=== PATIENT | female | born 1985 | race Caucasian/White ===

== ENCOUNTER 2017-11-10 11:56 | Observation (INO) | payer BC ==
[2017-11-10 15:29] LABS: PLATELET COUNT 244 10^3/uL (150-400)
--- NOTE | 2017-11-10 15:54 | SOAPPROG ---
SOAP Progress Note Assessment/Plan: Assessment: 31 y/o at 39.2 weeks ega with decreased movement sent to labor and delivery for NST complicated by: -increased BMI (36) -Rubella non-immune -insulin resistance ( 1 hour GTT 129) Reactive NST Gestational hypertension -Elevated BPs during this adm. 140s/80s - was 124/82 in office earlier today and has been normal range throughout Preeclampsia labs WNL Plan: 11/10/17 15:48 Subjective: Presents to labor and delivery from office with decreased movement today. Denies painful contractions, LOF, VB, increased swelling, headaches, epigastric pain or visual changes. FHTs 130s in office. VSS - BP 124/82 in office. No other concerns today. Objective: Laboratory Results 11/10/17 14:30 11/10/17 14:30 BPs elevated 140s/80s X2 upon admission Reactive NST - category 1 EFM [place] - quiet -denies painful contractions Reflexes +2 bilat Physical Exam - Physical Exam General Appearance: WD/WN, alert, no apparent distress EENT: PERRL/EOMI Neck: non-tender, supple Respiratory: lungs clear, normal breath sounds Cardiac/Chest: regular rate, rhythm Abdomen: non-tender (gravied non tender uterus) Pelvic Exam: deferred (SVE in office today /-3 posterior) Rectal: deferred Back: Normal inspection Skin: normal color, warm/dry Extremities: normal range of motion, pedal edema (mild pedal edema), swelling ( mild swelling in hands) Neuro/Psych: alert, normal mood/affect, oriented x 3
[2017-11-10] MEDS ORDERED: TERBUTALINE SULFATE 1 MG/ML VIAL IV PRN (17:03)
[2017-11-10] MEDS ORDERED: AMMONIA AROMATIC 1 EACH AMP IH PRN (17:03)
[2017-11-10] MEDS ORDERED: EPSOM SALT 454 GM TP PRN (17:03)
[2017-11-10] MEDS ORDERED: OLIVE OIL 118 ML BTL MISC PRN (17:03)
[2017-11-10] MEDS ORDERED: OXYTOCIN 20 UNIT in LR 1,000 ML IV PRN (17:03)
[2017-11-10] MEDS ORDERED: LR 1,000 ML IV PRN (17:03)
[2017-11-10] MEDS ORDERED: IBUPROFEN 600 MG TAB PO PRN (17:03)
[2017-11-10] MEDS ORDERED: MISOPROSTOL 200 MCG TAB PO PRN (17:03)
[2017-11-10] MEDS ORDERED: ZOLPIDEM TARTRATE 5 MG TAB PO PRN (17:08)
--- NOTE | 2017-11-10 17:45 | PDGENHP ---
History and Physical History and Physical: HPI: Patient is a 32 yo G 1 P0 at 39.3 weeks EGA who presented to L&D with complaints of decreased movement when seen for MADHU visit in office earlier today. NST was reactive, but BPs on admission were 140s/80s. BP was 124/80 in office today and has been in normal range during visits. Preeclampsia labs were drawn at that time- CMP, CBC, uric acid and urine protein /creat ratio were not suggestive of pre-eclampsia although repeat BP at 4 hours was 161/92. BP cuff was found to be an inappropriate size at that time and when appropriate sized cuff was used, BPs were in the 140s/80s-90 range. Patient denies LOF, VB, headache, visual changes, increased edema, or epigastric pain. Feeling more movement at this time. EDC: 11/15/2017 which is based on Ultrasound at 8 weeks - unknown LMP Her is complicated by: -high BMI (36 pre-) -insulin resistance - ( 1 hour GTT 129) Growth US at 33 weeks showed baby at 49 % -Rubella non- immune -GBS positive with PCN allergy Review of Systems: Constitutional: Denies any fever, chills, or fatigue HEENT: denies any visual changes, difficulty swallowing, hearing loss Cardiovascular: Denies any chest pain, palpitations, leg swelling Respiratory: denies any cough, wheezing, or shortness of breathe GI: Denies any nausea, vomiting, diarrhea, constipation : denies any dysuria, urgency, frequency, vaginal bleeding Musculoskeletal: denies any muscle or bone pain Skin: denies any rashes Neuro: denies any headache, seizures, lightheadedness, dizziness, or loss of consciousness Psychiatric: denies any depression, anxiety, or SI/HI thoughts HISTORY: Past medical history: insulin resistance, rubella non-immune Pertinent Past surgical history: none Medications: PNV Allergies (list reaction): PCN- rash LABS: Rh: A pos ABS: Neg Rubella: non-Immune HbsAg: NR HIV: NR VDRL: NR 1hr: 129 GC: Neg Chlamydia: Neg Pap: Normal 04/02 GBS:pos BMI: (prepreg) 36 PHYSICAL EXAM: Constitutional: WN, A&Ox3 HEENT: normocephalic atraumatic, supple Heart: RRR, no murmur Chest: CTA-B Abdomen: Soft, nontender, gravid SVE: 50/-3 Extremities: mild edema, negative adeline's sign Neuro: grossly normal Psych: normal affect assessment: Reassuring FHTs, baseline 130s +accels, no decels, moderate variability Contractions: toco irregular mild Assessment: 1) 31 yo G 1 P 0 with IUP@39.2 weeks EGA 2) Gestational hypertension 3) Preeclampsia labs WNL 3) GBS pos with PCN allergy 4) Reactive NST - Cat 1 FHR tracing 5) Rubella non- immune Plan: 1) Consulted with Dr. Shanks 2) Will send home now with strict preeclampsia precautions/ kick counts 3) Will return for IOL tomorrow at 5 pm - plan to place fitch bulb at that time 4) Patient verbalizes understanding and is comfortable with POC
[2017-11-10] MEDS ORDERED: CLINDAMYCIN 900 MG/DEXTROSE 50 ML IV SCH (22:00)
== END 2017-11-10 20:00 | disposition home or self-care (01) ==
LOC: FLD 11:56
PROVIDERS: ADMIT Advanced Practice Midwife; ATTEND Advanced Practice Midwife
DX: O13.3 Gestational [pregnancy-induced] hypertension without significant proteinuria, third trimester (principal); O36.8130 Decreased fetal movements, third trimester, not applicable or unspecified; O99.213 Obesity complicating pregnancy, third trimester; E66.9 Obesity, unspecified; Z68.36 Body mass index [BMI] 36.0-36.9, adult; O99.820 Streptococcus B carrier state complicating pregnancy; Z78.9 Other specified health status; Z88.0 Allergy status to penicillin; Z3A.39 39 weeks gestation of pregnancy
CPT/HCPCS: 59025; G0378

== ENCOUNTER 2017-11-11 17:00 | Inpatient (IN) | payer BC ==
[2017-11-11] MEDS ORDERED: EPSOM SALT 454 GM TP PRN (20:10)
[2017-11-11] MEDS ORDERED: LR 1,000 ML IV PRN (20:10)
[2017-11-11] MEDS ORDERED: TERBUTALINE SULFATE 1 MG/ML VIAL IV PRN (20:10)
[2017-11-11] MEDS ORDERED: MISOPROSTOL 200 MCG TAB PR PRN (20:10)
[2017-11-11] MEDS ORDERED: OLIVE OIL 118 ML BTL MISC PRN (20:10)
[2017-11-11] MEDS ORDERED: OXYTOCIN 20 UNIT in LR 1,000 ML IV PRN (20:10)
[2017-11-11 20:35] LABS: PLATELET COUNT 248 10^3/uL (150-400)
--- NOTE | 2017-11-11 21:02 | PDGENHP ---
History and Physical - Chief Complaint Induction of Labor for Gestational Hypertension - History of Present Illness 32 year old G1 at 39w3d by an 8 week ultrasound, presents for induction of labor secondary to gestational hypertension. She was seen in the office and evaluated in L&D yesterday, with some labile blood pressures, and it was decided by Elda Christian CNM, and the patient, to proceed with induction of labor starting tonight. Her PIH labs were normal yesterday. Today - she has a mild headache, which she relates to stress and dehydration today. Otherwise, no epigastric or RUQ pain. No visual changes. Good movement, no loss of fluid, no vaginal bleeding. has been complicated by recent hypertension, obesity with over a 50lb weight gain in , with a prepregnancy BMI of 36. labs: HBSAG neg, HIV neg, Rubella non Immune, RPR nonreactive, A pos, Ab scr neg, 1 hr GTT 129, Standard panel neg, HgbA1c 5.7, Gonorrhea neg, Chlamydia neg, Innatal neg, H/H at 28 wk = 12.1/35.8 History Information - Allergies/Home Medication List Allergies/Adverse Reactions: Penicillins Allergy (Verified 11/11/17 21:49) Rash Home Medications: Vit27&Calcium/Iron/FA [] 1 tab PO DAILY 11/10/17 [Last Taken ] I have personally reviewed and updated: family history, medical history, social history, surgical history Past Medical History: Insulin resistance. R wrist fracture 02/2016 - no surgery. Obesity - prepreg BMI 36 - Surgical History Additional surgical history: none - Family History Positive for: diabetes type II (father - DM2, sister bipolar, MGM - CVA, mother - lupus with kidney failure) - Social History Smoking Status: Never smoked Alcohol Use: None Drug Use: None Additional social history: Review of Systems Review of Systems: ROS: 10pt was reviewed & negative except for what was stated in HPI & below Physical Exam Physical Exam: US - confirmed cephalic presentation SVE - 1cm/ long / high 37.1 87 143/93 BP repeats: 156/102, 159/99, 151/92,166/98 ([id number]) 2100:134/66, 2115:139/71 Constitutional: no apparent distress Eyes: PERRL Ears, Nose, Mouth, Throat: moist mucous membranes Cardiovascular: regular rate and rhythym Respiratory: no respiratory distress, no rales or rhonchi, clear to auscultation Gastrointestinal: normoactive bowel sounds Skin: warm, normal color Musculoskeletal: full muscle strength Neurologic: AAOx3 Psychiatric: interacting appropriately (fundus firm and nontender) Lab Data & Imaging Review 11/11/17 19:15 11/11/17 19:15 WBC 11.31 10^3/uL (3.80-9.50) H 11/11/17 19:15 RBC 4.11 10^6/uL (4.18-5.33) L 11/11/17 19:15 Hgb 11.9 g/dL (12.6-16.3) L 11/11/17 19:15 Hct 35.2 % (38.0-47.0) L 11/11/17 19:15 MCV 85.6 fL (81.5-99.8) 11/11/17 19:15 MCH 29.0 pg (27.9-34.1) 11/11/17 19:15 MCHC 33.8 g/dL (32.4-36.7) 11/11/17 19:15 RDW 14.8 % (11.5-15.2) 11/11/17 19:15 Plt Count 248 10^3/uL (150-400) 11/11/17 19:15 MPV 11.6 fL (8.7-11.7) 11/11/17 19:15 Neut % (Auto) 78.0 % (39.3-74.2) H 11/11/17 19:15 Lymph % (Auto) 16.1 % (15.0-45.0) 11/11/17 19:15 [place] % (Auto) 4.2 % (4.5-13.0) L 11/11/17 19:15 Eos % (Auto) 1.1 % (0.6-7.6) 11/11/17 19:15 Baso % (Auto) 0.2 % (0.3-1.7) L 11/11/17 19:15 Nucleat RBC Rel Count 0.0 % (0.0-0.2) 11/11/17 19:15 Absolute Neuts (auto) 8.83 10^3/uL (1.70-6.50) H 11/11/17 19:15 Absolute Lymphs (auto) 1.82 10^3/uL (1.00-3.00) 11/11/17 19:15 Absolute Monos (auto) 0.47 10^3/uL (0.30-0.80) 11/11/17 19:15 Absolute Eos (auto) 0.12 10^3/uL (0.03-0.40) 11/11/17 19:15 Absolute Basos (auto) 0.02 10^3/uL (0.02-0.10) 11/11/17 19:15 Absolute Nucleated RBC 0.00 10^3/uL (0-0.01) 11/11/17 19:15 Immature Gran % 0.4 % (0.0-1.1) 11/11/17 19:15 Immature Gran # 0.05 10^3/uL (0.00-0.10) 11/11/17 19:15 BUN 10 mg/dL (7-23) 11/11/17 19:15 Creatinine 0.5 mg/dL (0.6-1.0) L 11/11/17 19:15 Estimated GFR > 60 11/11/17 19:15 Uric Acid 2.9 mg/dL (2.5-6.8) 11/11/17 19:15 Total Bilirubin 0.5 mg/dL (0.1-1.4) 11/11/17 19:15 Conjugated Bilirubin 0.2 mg/dL (0.0-0.5) 11/11/17 19:15 Unconjugated Bilirubin 0.3 mg/dL (0.0-1.1) 11/11/17 19:15 AST 21 IU/L (14-46) 11/11/17 19:15 ALT 31 IU/L (9-52) 11/11/17 19:15 Lactate Dehydrogenase 428 IU/L (313-618) 11/11/17 19:15 UA with 1+ protein Urine prot/Creat = 0.049 Assessment & Plan Assessment: 32 yo G1 at 39w3d with gestational HTN - here for induction of labor. Normal PIH labs. GBS positive - will start Ancef when in labor / after cervical ripening. Rubella non-Immune - will need pp vaccination. Plan: Cervical ripening tonight - Matos balloon placed. Procedure - attempted digital insertion - unable to complete due to body habitus and patient discomfort. Sterile speculum placed, and was able to feed catheter through cervix with ring forceps, and balloon was filled with 30ml sterile saline. Patient tolerated procedure well.
[2017-11-11] MEDS ORDERED: diphenhydrAMINE 25 MG CAP PO PRN (21:32)
[2017-11-11] MEDS ORDERED: CALCIUM CARBONATE 500 MG CHEWABLE TAB PO PRN (21:33)
[2017-11-11] MEDS: ACETAMINOPHEN 325 MG TAB PO PRN (21:52)
[2017-11-11] MEDS ORDERED: ceFAZolin 2 GM/SWFI 2 GM/20 ML SYR IVP ONE (22:30)
[2017-11-12] MEDS: ACETAMINOPHEN 325 MG TAB PO PRN (05:38)
[2017-11-12] MEDS ORDERED: OLIVE OIL 118 ML BTL ONE (06:08)
[2017-11-12] MEDS ORDERED: AMMONIA AROMATIC 1 EACH AMP IH ONE (06:08)
[2017-11-12] MEDS ORDERED: TERBUTALINE SULFATE 1 MG/ML VIAL ONE (06:08)
[2017-11-12] MEDS ORDERED: LIDOCAINE 1% 300 MG/30 ML SDV ONE (06:08)
[2017-11-12] MEDS ORDERED: OXYTOCIN 10 UNIT/ML VIAL ONE (06:09)
[2017-11-12] MEDS ORDERED: MISOPROSTOL 200 MCG TAB ONE (06:09)
[2017-11-12] MEDS ORDERED: MISOPROSTOL 50 MCG CAP PO PRN (08:12)
--- NOTE | 2017-11-12 08:54 | OBPROG ---
Labor Progress Note Assessment/Plan: Assessment: [id number] with IUP@39-4wks GHTN BMI 36 excessive wt gain in (>50#) GBS+ Cat 1 FHR Tracing Plan: fitch balloon out cytotec 50mcg PO at this time, q 4 hr PRN cont FHR monitoring reassess 4hr/PRN Dr Shanks agrees with POC 11/12/17 08:51 Subjective/Intrapartum Course: 11/12/17 08:53 Pt doing well. She denies any severe pain, but states she is uncomfortable with balloon in place. She denies any contractions, LOF, Vb. She reports +FM. She denies any headaches, visual changes, epigastric pain. FOB at BS and supportive. Objective: 11/11/17 19:15 11/11/17 19:15 Patient ABO/Rh A POSITIVE 11/11/17 19:15 Uric Acid 2.9 mg/dL (2.5-6.8) 11/11/17 19:15 Total Bilirubin 0.5 mg/dL (0.1-1.4) 11/11/17 19:15 Conjugated Bilirubin 0.2 mg/dL (0.0-0.5) 11/11/17 19:15 Unconjugated Bilirubin 0.3 mg/dL (0.0-1.1) 11/11/17 19:15 AST 21 IU/L (14-46) 11/11/17 19:15 ALT 31 IU/L (9-52) 11/11/17 19:15 Lactate Dehydrogenase 428 IU/L (313-618) 11/11/17 19:15 - SVE Dilation (cm): 1 Effacement (%): Less than 50 Station: -3 Membranes: Intact - Contraction Pattern Assessment Current Contraction Pattern: Irregular - FHR Assessment Bobo FHR (bpm): 135 FHR Pattern Variability: Moderate FHR Category: 1 - Physical Exam General Appearance: WD/WN, alert Abdomen: non-tender, soft Extremities: pedal edema (trace) DTR- Lower Extremities: Knee (R): 1+, Knee (L): 1+ Skin: normal color, warm/dry Neuro/Psych: no motor/sensory deficits, alert, normal mood/affect, oriented x 3 Oxytocin Orders Assessment - Pre-Induction/Augmentation Assessment Gestational Age: 39 week(s) and 3 day(s) ICD10 Worksheet Patient Problems: Problems Problem Status Onset BMI 36.0-36.9,adult Acute Excessive weight gain affecting Acute Gestational hypertension Acute - ICD10 Problem Qualifiers (1) Gestational hypertension (2) BMI 36.0-36.9,adult (3) Excessive weight gain affecting
--- NOTE | 2017-11-12 09:58 | PDMN ---
Medical Necessity Medical necessity: Patient meets inpatient criteria per physician note (IOL, gestational hypertension) and MCG likely [id number] Vaginal Delivery.
[2017-11-12] MEDS ORDERED: ceFAZolin 2 GM/SWFI 2 GM/20 ML SYR IVP ONE (11:15)
--- NOTE | 2017-11-12 13:39 | OBPROG ---
Labor Progress Note Assessment/Plan: Assessment: [id number] with IUP@39-4wks GHTN BMI 36 excessive wt gain in (>50#) GBS+ Cat 1 FHR Tracing Plan: cytotec 100mcg PO ordered cont FHR monitoring reassess 4hr/PRN 11/12/17 08:51 11/12/17 13:37 11/12/17 13:38 Subjective/Intrapartum Course: 11/12/17 08:53 Pt doing well. She denies any severe pain, but states she is uncomfortable with balloon in place. She denies any contractions, LOF, Vb. She reports +FM. She denies any headaches, visual changes, epigastric pain. FOB at BS and supportive. Objective: 11/11/17 19:15 11/11/17 19:15 Patient ABO/Rh A POSITIVE 11/11/17 19:15 Uric Acid 2.9 mg/dL (2.5-6.8) 11/11/17 19:15 Total Bilirubin 0.5 mg/dL (0.1-1.4) 11/11/17 19:15 Conjugated Bilirubin 0.2 mg/dL (0.0-0.5) 11/11/17 19:15 Unconjugated Bilirubin 0.3 mg/dL (0.0-1.1) 11/11/17 19:15 AST 21 IU/L (14-46) 11/11/17 19:15 ALT 31 IU/L (9-52) 11/11/17 19:15 Lactate Dehydrogenase 428 IU/L (313-618) 11/11/17 19:15 - SVE Membranes: Intact - Contraction Pattern Assessment Current Contraction Pattern: Irregular - FHR Assessment Bobo FHR (bpm): 130 FHR Pattern Variability: Moderate FHR Category: 1 Oxytocin Orders Assessment - Pre-Induction/Augmentation Assessment Gestational Age: 39 week(s) and 3 day(s) ICD10 Worksheet Patient Problems: Problems Problem Status Onset BMI 36.0-36.9,adult Acute Excessive weight gain affecting Acute Gestational hypertension Acute - ICD10 Problem Qualifiers (1) Gestational hypertension (2) BMI 36.0-36.9,adult (3) Excessive weight gain affecting
[2017-11-12] MEDS: MISOPROSTOL 100 MCG TAB PO SCH ×2 (13:52→19:08)
[2017-11-12] MEDS ORDERED: CLINDAMYCIN 900 MG/DEXTROSE 50 ML IV SCH (14:00)
[2017-11-12] MEDS ORDERED: LR 500 ML IV PRN (18:23)
--- NOTE | 2017-11-12 18:27 | OBPROG ---
Labor Progress Note Assessment/Plan: Assessment: [id number] with IUP@39-4wks GHTN BMI 36 excessive wt gain in (>50#) GBS+ Cat 1 FHR Tracing Plan: plan to start pitocin cont FHR monitoring reassess 2-4hr/PRN 11/12/17 08:51 11/12/17 13:37 11/12/17 13:38 11/12/17 18:25 Subjective/Intrapartum Course: 11/12/17 08:53 Pt doing well. She denies any severe pain, but states she is uncomfortable with balloon in place. She denies any contractions, LOF, Vb. She reports +FM. She denies any headaches, visual changes, epigastric pain. FOB at BS and supportive. 11/12/17 18:25 Pt doing well, reports cramping and mild contractions. She states she had ?LOF at 1730, but unsure. She declines need for pain relief. Objective: 11/11/17 19:15 11/11/17 19:15 Patient ABO/Rh A POSITIVE 11/11/17 19:15 Uric Acid 2.9 mg/dL (2.5-6.8) 11/11/17 19:15 Total Bilirubin 0.5 mg/dL (0.1-1.4) 11/11/17 19:15 Conjugated Bilirubin 0.2 mg/dL (0.0-0.5) 11/11/17 19:15 Unconjugated Bilirubin 0.3 mg/dL (0.0-1.1) 11/11/17 19:15 AST 21 IU/L (14-46) 11/11/17 19:15 ALT 31 IU/L (9-52) 11/11/17 19:15 Lactate Dehydrogenase 428 IU/L (313-618) 11/11/17 19:15 - SVE Dilation (cm): 2 Effacement (%): 50 Station: -3 Membranes: SROM Amniotic Fluid Color: Clear - Contraction Pattern Assessment Current Contraction Pattern: Irregular - FHR Assessment Bobo FHR (bpm): 130 FHR Pattern Variability: Moderate FHR Category: 1 Oxytocin Orders Assessment - Pre-Induction/Augmentation Assessment Presentation: Vertex Gestational Age: 39 week(s) and 3 day(s) Membrane Status: Ruptured Current Sterile Vaginal Exam (SVE): /-3 Current Contraction Pattern: Irregular - Induction/Augmentation Consent Risks/Benefits of Procedure Reviewed/Pt Agrees to Proceed: Yes ICD10 Worksheet Patient Problems: Problems Problem Status Onset BMI 36.0-36.9,adult Acute Excessive weight gain affecting Acute Gestational hypertension Acute - ICD10 Problem Qualifiers (1) Gestational hypertension (2) BMI 36.0-36.9,adult (3) Excessive weight gain affecting
[2017-11-12] MEDS ORDERED: OXYTOCIN 30 UNIT in NS 500 ML IV SCH (18:30)
[2017-11-12] MEDS: CLINDAMYCIN 900 MG/DEXTROSE 50 ML IV SCH (19:24)
--- NOTE | 2017-11-12 23:07 | OBPROG ---
Labor Progress Note Assessment/Plan: Assessment: [id number] with IUP@39-4wks GHTN BMI 36 excessive wt gain in (>50#) GBS+ Cat 1 FHR Tracing Plan: cont pitocin pain management PRN cont IV abx (clindamycin) cont FHR monitoring reassess 2-4hr/PRN Subjective/Intrapartum Course: 11/12/17 08:53 Pt doing well. She denies any severe pain, but states she is uncomfortable with balloon in place. She denies any contractions, LOF, Vb. She reports +FM. She denies any headaches, visual changes, epigastric pain. FOB at BS and supportive. 11/12/17 18:25 Pt doing well, reports cramping and mild contractions. She states she had ?LOF at 1730, but unsure. She declines need for pain relief. 11/13/17 23:25 Pt reports pain with contractions. She is considering pain medication/LUIS. She is going to try hydrotherapy at this time. She is breathing through contractions. Objective: 11/11/17 19:15 11/11/17 19:15 Patient ABO/Rh A POSITIVE 11/11/17 19:15 Uric Acid 2.9 mg/dL (2.5-6.8) 11/11/17 19:15 Total Bilirubin 0.5 mg/dL (0.1-1.4) 11/11/17 19:15 Conjugated Bilirubin 0.2 mg/dL (0.0-0.5) 11/11/17 19:15 Unconjugated Bilirubin 0.3 mg/dL (0.0-1.1) 11/11/17 19:15 AST 21 IU/L (14-46) 11/11/17 19:15 ALT 31 IU/L (9-52) 11/11/17 19:15 Lactate Dehydrogenase 428 IU/L (313-618) 11/11/17 19:15 - SVE Dilation (cm): 3 Effacement (%): 75 Station: -2 Membranes: SROM Amniotic Fluid Color: Clear - Contraction Pattern Assessment Current Contraction Pattern: Irregular Oxytocin Orders Assessment - Pre-Induction/Augmentation Assessment Presentation: Vertex Gestational Age: 39 week(s) and 3 day(s) ICD10 Worksheet Patient Problems: Problems Problem Status Onset BMI 36.0-36.9,adult Acute Excessive weight gain affecting Acute Gestational hypertension Acute - ICD10 Problem Qualifiers (1) Gestational hypertension (2) BMI 36.0-36.9,adult (3) Excessive weight gain affecting
[2017-11-13] MEDS ORDERED: fentaNYL 100 MCG/2 ML INJ ONE (00:51)
[2017-11-13] MEDS ORDERED: PHENYLEPHRINE HCL 100 MCG/ML SYR ONE (00:51)
[2017-11-13] MEDS ORDERED: METOCLOPRAMIDE 10 MG/2 ML VIAL IVP PRN (00:54)
[2017-11-13] MEDS ORDERED: ONDANSETRON 4 MG/2 ML VIAL IVP PRN (00:54)
[2017-11-13] MEDS ORDERED: PHENYLEPHRINE HCL 100 MCG/ML SYR IVP PRN (00:54)
[2017-11-13] MEDS ORDERED: NALOXONE HCL 0.4 MG/ML INJ IVP PRN (00:54)
--- NOTE | 2017-11-13 00:56 | PREANESOB ---
Obstetric Pre-Anesthesia Info - General Info : 1 Para: 0 MARJORIE: 11/15/17 Gestational Age: 39 week(s) and 3 day(s) - Labor Status Cervical Dilation per last OB SVE: 3 Station per last OB SVE: -2 Amniotic Fluid Color: Clear Magnesium Sulfate in Use: No Indications for Labor Analgesia: Pain Control Labor Epidural: Yes Anesthesia Allergies/Adverse Reactions: Allergy/AdvReac Type Severity Reaction Status Date / Time cefazolin [From [facility]] Allergy itching in Verified 11/12/17 14:19 throat and hives Penicillins Allergy Rash Verified 11/12/17 14:21 Home Medications: Medication Instructions Recorded Vit27&Calcium/Iron/FA 1 tab PO DAILY 11/10/17 [] Visit Medications: Generic Name Dose Route Start Last Admin Trade Name Freq PRN Reason Stop Dose Admin Acetaminophen 650 mg 11/11/17 21:31 11/12/17 05:38 Tylenol PO 05/10/18 21:30 650 mg Q4HRS PRN Administration Pain, Mild/Fever, Can Take PO Calcium Carbonate 500 mg 11/11/17 21:33 Tums PO 05/10/18 21:32 TID PRN Indigestion Diphenhydramine HCl 25 mg 11/11/17 21:32 11/11/17 23:24 Benadryl PO 05/10/18 21:31 25 mg HS PRN Administration Sleep/Insomnia Oxytocin 20 unit/ Lactated 1,002 mls @ 150 mls/hr 11/11/17 20:10 Ringer's IV PRN PRN Post- bleeding Clindamycin Phosphate/Dextrose 50 mls @ 100 mls/hr 11/12/17 19:00 11/12/17 19 :24 Cleocin 900 Mg (Premix) IV 12/12/17 18:59 50 mls Q8H LIAM Administration Protocol Lactated Ringer's 500 mls @ 500 mls/hr 11/12/17 18:23 Lr IV 11/13/17 18:23 PRN PRN Maternal Hypotension Oxytocin 30 unit/ Sodium 503 mls @ 0 mls/hr 11/12/17 18:30 11/12/17 20:12 Chloride IV 05/11/18 18:29 503 mls CONT LIAM Administration Protocol Per Protocol Ibuprofen 600 mg 11/11/17 20:10 Motrin PO 05/10/18 20:09 Q6HRS PRN post , inflammation Magnesium Sulfate 454 gm 11/11/17 20:10 Epsom Salt TP 05/10/18 20:09 Q1H PRN perineal discomfort Misoprostol 800 - 1,000 mcg 11/11/17 20:10 Cytotec MO ONCE PRN Vaginal Atony/Bleeding [place] Oil 118 ml 11/11/17 20:10 Sweet Oil MISC 05/10/18 20:09 ONCE PRN perineal massage Terbutaline Sulfate 0.25 mg 11/11/17 20:10 Brethine IV 05/10/18 20:09 ONCE PRN Tachysystole Discontinued Medications Generic Name Dose Route Start Last Admin Trade Name Freq PRN Reason Stop Dose Admin Ammonia (Aromatic Spirit) Confirm 11/12/17 06:08 Ammonia Aromatic Administered 11/12/17 06:09 Dose 1 each IH .STK-MED ONE Diphenhydramine HCl Confirm 11/12/17 12:11 Benadryl Injection Administered 11/12/17 12:12 Dose 50 mg .ROUTE .STK-MED ONE Diphenhydramine HCl 50 mg 11/12/17 12:30 11/12/17 12:05 Benadryl Injection IVP 11/12/17 12:31 50 mg ONCE ONE Administration Ephedrine Sulfate Confirm 11/13/17 00:51 Ephedrine Sulfate Administered 11/13/17 00:52 Dose 50 mg .ROUTE .STK-MED ONE Fentanyl Confirm 11/13/17 00:51 Sublimaze Administered 11/13/17 00:52 Dose 100 mcg .ROUTE .STK-MED ONE Lactated Ringer's 1,000 mls @ 0 mls/hr 11/11/17 20:10 11/12/17 09:02 Lr IV 11/12/17 20:09 1,000 mls PRN PRN Administration SEE PROTOCOL CONDITIONS Protocol Per Protocol Cefazolin Sodium 2 gm in 20 mls @ 40 mls/hr 11/11/17 22:30 11/12/17 01:08 Cefazolin Syringe IVP 11/11/17 22:59 Not Given ONCALL ONE Protocol Cefazolin Sodium/Dextrose 50 mls @ 200 mls/hr 11/12/17 06:00 Ancef 1 Gm (Premix) IV 12/12/17 05:59 Q8HRS LIAM Protocol Cefazolin Sodium 2 gm in 20 mls @ 40 mls/hr 11/12/17 11:15 11/12/17 11:25 Cefazolin Syringe IVP 11/12/17 11:44 20 mls ONCALL ONE Administration Protocol Cefazolin Sodium/Dextrose 50 mls @ 200 mls/hr 11/12/17 17:00 Ancef 1 Gm (Premix) IV 12/12/17 16:59 Q8H [facility] Protocol Clindamycin Phosphate/Dextrose 50 mls @ 100 mls/hr 11/12/17 14:00 11/12/17 16 :13 Cleocin 900 Mg (Premix) IV 12/12/17 13:59 Not Given Q8HRS [facility] Protocol Lidocaine HCl Confirm 11/12/17 06:08 Lidocaine Hcl 1% Administered 11/12/17 06:09 Dose 300 mg .ROUTE .STK-MED ONE Misoprostol Confirm 11/12/17 06:09 Cytotec Administered 11/12/17 06:10 Dose 1,000 mcg .ROUTE .STK-MED ONE Misoprostol 50 mcg 11/12/17 08:12 11/12/17 09:03 Cytotec PO 05/11/18 08:11 50 mcg Q4H PRN Administration induction of labor Misoprostol 100 mcg 11/12/17 13:45 11/12/17 19:08 Cytotec PO 05/11/18 13:44 Not Given Q4H [facility] [place] Oil Confirm 11/12/17 06:08 Sweet Oil Administered 11/12/17 06:09 Dose 118 ml .ROUTE .STK-MED ONE Oxytocin Confirm 11/12/17 06:09 Pitocin Administered 11/12/17 06:10 Dose 30 unit .ROUTE .STK-MED ONE Phenylephrine HCl Confirm 11/13/17 00:51 Neosynephrine Administered 11/13/17 00:52 Dose 1,000 mcg .ROUTE .STK-MED ONE Terbutaline Sulfate Confirm 11/12/17 06:08 Brethine Administered 11/12/17 06:09 Dose 1 mg .ROUTE .STK-MED ONE - Anesthesia History Response to Local Anesthetics: Normal Anesthesia & Operative History: No Prior Problems Family Anesthesia History: Negative - Social History Substance Use/Abuse: Denies - Vital Signs Height/Weight (Nursing): Height 165.1 cm Weight 115.666 kg - Focused Exam Neck exam: FROM Mallampati Score: Class 2 Mouth exam: normal dental/mouth exam Pulmonary: no respiratory distress Labs: 11/11/17 19:15 11/11/17 19:15 Patient ABO/Rh A POSITIVE 11/11/17 19:15 Uric Acid 2.9 mg/dL (2.5-6.8) 11/11/17 19:15 Total Bilirubin 0.5 mg/dL (0.1-1.4) 11/11/17 19:15 Conjugated Bilirubin 0.2 mg/dL (0.0-0.5) 11/11/17 19:15 Unconjugated Bilirubin 0.3 mg/dL (0.0-1.1) 11/11/17 19:15 AST 21 IU/L (14-46) 11/11/17 19:15 ALT 31 IU/L (9-52) 11/11/17 19:15 Lactate Dehydrogenase 428 IU/L (313-618) 11/11/17 19:15 - Plan Consent Signed and on Chart: Yes Patient/Guardian Understands and Agrees to Plan: Yes
[2017-11-13] MEDS ORDERED: fentaNYL 200 MCG, BUPIVACAINE 0.5% 20 ML in NS 100 ML EP SCH (01:00)
[2017-11-13] MEDS ORDERED: LR 500 ML IV SCH (01:00)
[2017-11-13] MEDS ORDERED: fentaNYL 2MCG/ML/BUP 0.1% RTU 100 ML EP SCH (01:00)
--- NOTE | 2017-11-13 02:25 | OBPROG ---
Labor Progress Note Assessment/Plan: Assessment: [id number] with IUP@39-4wks GHTN BMI 36 excessive wt gain in (>50#) GBS+ Cat 2 FHR Tracing Plan: cont pitocin pain management PRN cont IV abx (clindamycin) reassess 2-4hr/PRN 11/13/17 02:21 11/13/17 02:25 Subjective/Intrapartum Course: 11/12/17 08:53 Pt doing well. She denies any severe pain, but states she is uncomfortable with balloon in place. She denies any contractions, LOF, Vb. She reports +FM. She denies any headaches, visual changes, epigastric pain. FOB at BS and supportive. 11/12/17 18:25 Pt doing well, reports cramping and mild contractions. She states she had ?LOF at 1730, but unsure. She declines need for pain relief. 11/13/17 23:25 Pt reports pain with contractions. She is considering pain medication/LIUS. She is going to try hydrotherapy at this time. She is breathing through contractions. 11/13/17 02:23 Pt comfortable with LUIS at this time. She does report mild pressure. Discussed recommendation for IUPC and FSE. Unable to adequately monitor contractions and FHR. Pt agrees to have IUPC and FSE placed at this time. Objective: 11/11/17 19:15 11/11/17 19:15 Patient ABO/Rh A POSITIVE 11/11/17 19:15 Uric Acid 2.9 mg/dL (2.5-6.8) 11/11/17 19:15 Total Bilirubin 0.5 mg/dL (0.1-1.4) 11/11/17 19:15 Conjugated Bilirubin 0.2 mg/dL (0.0-0.5) 11/11/17 19:15 Unconjugated Bilirubin 0.3 mg/dL (0.0-1.1) 11/11/17 19:15 AST 21 IU/L (14-46) 11/11/17 19:15 ALT 31 IU/L (9-52) 11/11/17 19:15 Lactate Dehydrogenase 428 IU/L (313-618) 11/11/17 19:15 - SVE Dilation (cm): 6 Effacement (%): 80 Station: -2 Membranes: SROM Amniotic Fluid Color: Clear - Contraction Pattern Assessment Current Contraction Pattern: Irregular - FHR Assessment Bobo FHR (bpm): 130 (difficult to monitor 2/2 habitus) FHR Pattern Variability: Moderate FHR Category: 2 - Procedures Non-surgical Procedures: FSE, IUPC Oxytocin Orders Assessment - Pre-Induction/Augmentation Assessment Presentation: Vertex Gestational Age: 39 week(s) and 3 day(s) ICD10 Worksheet Patient Problems: Problems Problem Status Onset BMI 36.0-36.9,adult Acute Excessive weight gain affecting Acute Gestational hypertension Acute - ICD10 Problem Qualifiers (1) Gestational hypertension (2) BMI 36.0-36.9,adult (3) Excessive weight gain affecting
[2017-11-13] MEDS ORDERED: HYDROCODONE/APAP 5/325 TAB PO PRN (04:29)
[2017-11-13] MEDS ORDERED: SIMETHICONE 80 MG TAB CHEW PO PRN (04:29)
[2017-11-13] MEDS ORDERED: HYDROCORTISONE 0.5% CREAM TP PRN (04:29)
[2017-11-13] MEDS ORDERED: ACETAMINOPHEN 325 MG TAB PO PRN (04:29)
[2017-11-13] MEDS: IBUPROFEN 600 MG TAB PO PRN ×4 (04:38→23:56)
[2017-11-13] MEDS: CLINDAMYCIN 900 MG/DEXTROSE 50 ML IV SCH ×2 (05:46→13:16)
--- NOTE | 2017-11-13 11:29 | POSTANESTH ---
Post Anesthetic Evaluation Cardiovascular Status: Normal, Stable Respiratory Status: Normal, Stable Level of Consciousness/Mental Status: Can Participate in Eval Pain Control: Adequate, Prn Tx Ordered Nausea/Vomiting Control: Adequate, Prn Tx Ordered Complications Possibly Related to Anesthesia: None Noted
[2017-11-13] MEDS: DOCUSATE SODIUM 100 MG CAP PO PRN (23:56)
[2017-11-14] MEDS: IBUPROFEN 600 MG TAB PO PRN ×3 (06:09→21:07)
[2017-11-14] MEDS: DOCUSATE SODIUM 100 MG CAP PO PRN ×2 (09:59→21:07)
--- NOTE | 2017-11-14 09:59 | OBPP ---
Progress Note Assessment/Plan: Assessment:32 yo s/p - after IOL for gest HTN. BPs have been stable. Doing well. Plan: Continue routine pp cares. 11/14/17 10:00 11/14/17 10:02 Subjective/ Course: 11/14/17 09:59 Doing well. Eating well. Voiding and ambulating without difficulty. Working on . Baby in NICU but doing well. Objective: 11/14/17 03:30 11/11/17 19:15 Patient ABO/Rh A POSITIVE 11/11/17 19:15 Uric Acid 2.9 mg/dL (2.5-6.8) 11/11/17 19:15 Total Bilirubin 0.5 mg/dL (0.1-1.4) 11/11/17 19:15 Conjugated Bilirubin 0.2 mg/dL (0.0-0.5) 11/11/17 19:15 Unconjugated Bilirubin 0.3 mg/dL (0.0-1.1) 11/11/17 19:15 AST 21 IU/L (14-46) 11/11/17 19:15 ALT 31 IU/L (9-52) 11/11/17 19:15 Lactate Dehydrogenase 428 IU/L (313-618) 11/11/17 19:15 Temp Pulse Resp BP Pulse Ox 36.6 C 80 17 110/72 94 11/14/17 08:00 11/14/17 08:00 11/14/17 08:00 11/14/17 08:00 11/14/17 08:00 gen - pleasant, NAD CV - RRR chest - CTA abd - soft, gravid, NT, fundus firm u-3 ext - trace edema, no calf tenderness Perineum - stitches intact, tender but no signs of infection, nl amt of lochia Uterine Position/Fundal Height: Umbilicus -2 Uterine Tone: Firm
[2017-11-15] MEDS: IBUPROFEN 600 MG TAB PO PRN ×2 (06:10→12:54)
[2017-11-15 10:29] VITALS: BP 130/82
[2017-11-15] MEDS ORDERED: MEASLES,MUMPS&RUBELLA VACC/PF 0.5 ML VIAL SC ONE ×2 (10:32→12:52)
[2017-11-15] MEDS: DOCUSATE SODIUM 100 MG CAP PO PRN (12:54)
--- NOTE | 2017-11-15 15:16 | OBGCSDC ---
General Delivery Information - General Info : 1 Para: 1 Abortions: 0 L&D Analgesia/Anesthesia Type: Epidural Admission Date: 11/11/17 Labs: Patient ABO/Rh A POSITIVE 11/11/17 19:15 Hct 32.4 % (38.0-47.0) L 11/14/17 03:30 - Hospital Course Intrapartum: 11/12/17 08:53 Pt doing well. She denies any severe pain, but states she is uncomfortable with balloon in place. She denies any contractions, LOF, Vb. She reports +FM. She denies any headaches, visual changes, epigastric pain. FOB at BS and supportive. 11/12/17 18:25 Pt doing well, reports cramping and mild contractions. She states she had ?LOF at 1730, but unsure. She declines need for pain relief. 11/13/17 23:25 Pt reports pain with contractions. She is considering pain medication/LUIS. She is going to try hydrotherapy at this time. She is breathing through contractions. 11/13/17 02:23 Pt comfortable with LIUS at this time. She does report mild pressure. Discussed recommendation for IUPC and FSE. Unable to adequately monitor contractions and FHR. Pt agrees to have IUPC and FSE placed at this time. : 11/14/17 09:59 Doing well. Eating well. Voiding and ambulating without difficulty. Working on . Baby in NICU but doing well. Vaginal - Delivery Provider Delivery Physician/CNM: Karma Lawson - Diagnosis Labor: Augmented Rupture of Membranes Type: Spontaneous Amniotic Fluid Color: Clear Laceration: 1st Degree Repair: 3-0 Delivery Events: None - Procedures Non-surgical Procedures: FSE, IUPC - Delivery Non-surgical Procedures: FSE, IUPC [place] Data MARJORIE: 11/15/17 Gestational Age: 43 week(s) and 3 day(s) Bobo Delivery Date: 11/13/17 Delivery Time: 03:58 Sex of : Male [place] Weight (gm): 3494 kg Discharge Information - Discharge Information Condition: Good
--- NOTE | 2017-11-16 00:15 | OBDEL ---
Info Type: Vaginal Presentation at Delivery: Vertex L&D Analgesia/Anesthesia Type: Epidural GBS+: Yes Antibiotic Used for + GBS: Clindamycin Intrapartum Medications: Discontinued Medications Generic Name Dose Route Start Last Admin Trade Name Ted PRN Reason Stop Dose Admin Acetaminophen 650 mg 11/11/17 21:31 11/12/17 05:38 Tylenol PO 05/10/18 21:30 650 mg Q4HRS PRN Administration Pain, Mild/Fever, Can Take PO Diphenhydramine HCl 25 mg 11/11/17 21:32 11/11/17 23:24 Benadryl PO 05/10/18 21:31 25 mg HS PRN Administration Sleep/Insomnia Diphenhydramine HCl 50 mg 11/12/17 12:30 11/12/17 12:05 Benadryl Injection IVP 11/12/17 12:31 50 mg ONCE ONE Administration Docusate Sodium 100 mg 11/13/17 04:29 11/15/17 12:54 Colace PO 05/12/18 04:28 100 mg BID PRN Administration Constipation Lactated Ringer's 1,000 mls @ 0 mls/hr 11/11/17 20:10 11/12/17 09:02 Lr IV 11/12/17 20:09 1,000 mls PRN PRN Administration SEE PROTOCOL CONDITIONS Protocol Per Protocol Cefazolin Sodium 2 gm in 20 mls @ 40 mls/hr 11/11/17 22:30 11/12/17 01:08 Cefazolin Syringe IVP 11/11/17 22:59 Not Given ONCALL ONE Protocol Cefazolin Sodium 2 gm in 20 mls @ 40 mls/hr 11/12/17 11:15 11/12/17 11:25 Cefazolin Syringe IVP 11/12/17 11:44 20 mls ONCALL ONE Administration Protocol Clindamycin Phosphate/Dextrose 50 mls @ 100 mls/hr 11/12/17 14:00 11/12/17 16 :13 Cleocin 900 Mg (Premix) IV 12/12/17 13:59 Not Given Q8HRS [facility] Protocol Clindamycin Phosphate/Dextrose 50 mls @ 100 mls/hr 11/12/17 19:00 11/13/17 13 :16 Cleocin 900 Mg (Premix) IV 12/12/17 18:59 Not Given Q8H [facility] Protocol Oxytocin 30 unit/ Sodium 503 mls @ 0 mls/hr 11/12/17 18:30 11/12/17 20:12 Chloride IV 05/11/18 18:29 503 mls CONT [facility] Administration Protocol Per Protocol Ibuprofen 600 mg 11/11/17 20:10 11/15/17 12:54 Motrin PO 05/10/18 20:09 600 mg Q6HRS PRN Administration post , inflammation Measles/Mumps/Rubella Vaccine Live 0.5 ml 11/15/17 10:32 11/15/17 12:55 M-M-R Ii Vaccine With Diluent SC 11/15/17 10:33 0.5 ml .ONCE ONE Administration Misoprostol 50 mcg 11/12/17 08:12 11/12/17 09:03 Cytotec PO 05/11/18 08:11 50 mcg Q4H PRN Administration induction of labor Misoprostol 100 mcg 11/12/17 13:45 11/12/17 19:08 Cytotec PO 05/11/18 13:44 Not Given Q4H [facility] - Hospital Course Intrapartum: 11/12/17 08:53 Pt doing well. She denies any severe pain, but states she is uncomfortable with balloon in place. She denies any contractions, LOF, Vb. She reports +FM. She denies any headaches, visual changes, epigastric pain. FOB at BS and supportive. 11/12/17 18:25 Pt doing well, reports cramping and mild contractions. She states she had ?LOF at 1730, but unsure. She declines need for pain relief. 11/13/17 23:25 Pt reports pain with contractions. She is considering pain medication/LUIS. She is going to try hydrotherapy at this time. She is breathing through contractions. 11/13/17 02:23 Pt comfortable with LUIS at this time. She does report mild pressure. Discussed recommendation for IUPC and FSE. Unable to adequately monitor contractions and FHR. Pt agrees to have IUPC and FSE placed at this time. Indications for Delivery: Gestational Hypertension Vaginal Delivery - Delivery Provider Delivery Physician/CNM: Karma Lawson - Labor and Delivery Onset of Contractions Date: 11/12/17 Onset of Contractions Time: 17:50 Onset of Contractions Type: Induced Rupture of Membranes Date: 11/12/17 Rupture of Membranes Time: 17:00 Rupture of Membranes Type: Spontaneous Amniotic Fluid Color: Clear Dilation Complete Date: 11/13/17 Dilation Complete Time: 03:12 Placenta Delivery Date: 11/13/17 Placenta Delivery Time: 04:12 Total Hours of Labor: 10 Non-surgical Procedures: FSE, IUPC Laceration: 1st Degree Repair: 3-0, Vicryl Vaginal Sponge Count Correct: Yes Vaginal Needle Count Correct: Yes Vaginal Sweep Performed: Yes EBL: 250 - Medications Labor Augmentation/Induction Methods Used: Pitocin, Misoprostol, Matos Bulb Labor Augmentation/Induction Indication: Other (Specify) (GHTN) Data MARJORIE: 11/15/17 Gestational Age: 40 week(s) and 1 day(s) Bobo Delivery Date: 11/13/17 Delivery Time: 03:58 Sex of Infant: Male Weight (gm): 3494 kg ICD10 Worksheet Patient Problems: Problems Problem Status Onset BMI 36.0-36.9,adult Acute Excessive weight gain affecting Acute Gestational hypertension Acute Normal vaginal delivery Acute - ICD10 Problem Qualifiers (1) Gestational hypertension (2) BMI 36.0-36.9,adult (3) Excessive weight gain affecting
== END 2017-11-15 16:00 | disposition home or self-care (01) | DRG 775 ==
LOC: FLD 18:22 → FOB 11-13 10:41
PROVIDERS: ADMIT Hospitalist; ATTEND Hospitalist
PROC: 3E0P7GC Introduction of Other Therapeutic Substance into Female Reproductive, Via Natural or Artificial Opening (ICD-10-PCS; principal; 2017-11-13)
PROC: 0HQ9XZZ Repair Perineum Skin, External Approach (ICD-10-PCS; principal; 2017-11-13)
PROC: 0U7C7DZ Dilation of Cervix with Intraluminal Device, Via Natural or Artificial Opening (ICD-10-PCS; principal; 2017-11-13)
PROC: 3E033VJ Introduction of Other Hormone into Peripheral Vein, Percutaneous Approach (ICD-10-PCS; principal; 2017-11-13)
PROC: 10E0XZZ Delivery of Products of Conception, External Approach (ICD-10-PCS; principal; 2017-11-13)
DX: O13.4 Gestational [pregnancy-induced] hypertension without significant proteinuria, complicating childbirth (principal); O70.0 First degree perineal laceration during delivery; O99.820 Streptococcus B carrier state complicating pregnancy; O99.214 Obesity complicating childbirth; Z68.36 Body mass index [BMI] 36.0-36.9, adult; E66.9 Obesity, unspecified; Z3A.40 40 weeks gestation of pregnancy; Z37.0 Single live birth
CPT/HCPCS: J0690; J1200; J2370; J2590; J3010; J3105

== ENCOUNTER → 2018-03-12 | Outpatient (CLI) | payer BC | LOC: FIMAGING 14:44 | PROVIDERS: ATTEND Family Medicine | DX: K80.20 Calculus of gallbladder without cholecystitis without obstruction (principal); K76.0 Fatty (change of) liver, not elsewhere classified ==